=== PATIENT | male | born 1995 | race Caucasian/White ===

== ENCOUNTER 2019-02-24 22:24 | Observation (INO) ==
[2019-02-25] MEDS ORDERED: Naloxone 0.4 MG/ML INJ IVP PRN (02:57)
[2019-02-25] MEDS ORDERED: 0.9 % Sodium Chloride 1,000 ML IVC ONE (04:15)
[2019-02-25 04:34] LABS: Hematocrit 40.7 % (37.5-50.1); Hemoglobin 13.6 g/dL (12.9-16.9); Mean Corpuscular HGB Conc 33.4 g/dL (31.6-35.5); Mean Corpuscular Hemoglobin 28.9 pg (28.0-33.3); Mean Corpuscular Volume 86.4 fL (83.0-100.0); Mean Platelet Volume 8.4 fL (9.4-12.4); Platelet Count 355 K/mcL (140-400); Red Blood Count 4.71 M/mcL (4.19-5.50); Red Cell Distribution Width 11.9 % (11.5-14.5); White Blood Count 5.9 K/mcL (4.3-11.1)
[2019-02-25 05:05] LABS: Alanine Aminotransferase 45 Units/L (7-52); Albumin 3.9 g/dL (3.5-5.7); Albumin/Globulin Ratio 1.3 (1.1-2.2); Alkaline Phosphatase 43 Units/L (34-104); Aspartate Amino Transferase 22 Units/L (13-39); BUN/Creatinine Ratio 14 (6-26); Bilirubin,Total 0.4 mg/dL (0.3-1.0); Blood Urea Nitrogen 12 mg/dL (6-20); Carbon Dioxide 24 mEq/L (23-29); Chloride 109 mEq/L (98-107); Globulin 2.9 g/dL (2.4-3.5); Glucose 95 mg/dL (70-105); Magnesium 2.2 mg/dL (1.6-2.6); Osmolality,Calculated 290 (280-300); Phosphorous 3.6 mg/dL (2.7-4.5); Potassium 3.6 mEq/L (3.5-5.1); Sodium 140 mEq/L (136-145); Total Protein 6.8 g/dL (6.4-8.9); eGFR For African Americans > 60 (> 60); eGFR For Non-African Americans > 60 (> 60)
[2019-02-25] MEDS ORDERED: Isovue-370 500 ML BOTTLE IVP ONE (10:43)
[2019-02-25] MEDS ORDERED: Perflutren Lipid Microsphere 1.3 ML in 0.9 % Sodium Chloride 8.7 ML IVP ONE (13:10)
[2019-02-25] MEDS ORDERED: cloNIDine HCl 0.1 MG TABLET PO PRN (20:07)
[2019-02-25] MEDS ORDERED: Loratadine 10 MG TABLET PO PRN (20:07)
[2019-02-25] MEDS ORDERED: ALPRAZolam 1 MG TABLET PO PRN (20:07)
[2019-02-25] MEDS ORDERED: MAGNESIUM HYDROXIDE PO PRN (20:30)
[2019-02-25] MEDS ORDERED: Ibuprofen 800 MG TABLET PO PRN (20:30)
[2019-02-25] MEDS ORDERED: Melatonin 3 MG TABLET PO SCH (20:45)
[2019-02-26 07:49] VITALS: BP 127/77
[2019-02-26] MEDS ORDERED: ARIPiprazole 10 MG TABLET PO SCH (09:00)
== END 2019-02-26 10:18 | disposition home or self-care (01) ==
LOC: 3BNU
PROVIDERS: ADMIT Family Medicine; ATTEND Family Medicine